=== PATIENT | male | born 1995 | race Two or more races ===

== ENCOUNTER 2021-03-29 14:44 | Emergency (ER) | payer OTHER ==
[~2021-03-29] VITALS: Ht 172.7 cm; Wt 68.0 kg
== END 2021-03-29 18:13 | disposition home or self-care (01) ==
LOC: ER 14:44
DX: S62.324A Displaced fracture of shaft of fourth metacarpal bone, right hand, initial encounter for closed fracture (principal); W18.09XA Striking against other object with subsequent fall, initial encounter; Y93.89 Activity, other specified; Y92.838 Other recreation area as the place of occurrence of the external cause; Y99.8 Other external cause status